=== PATIENT | female | born 1985 | race Caucasian/White ===

== ENCOUNTER → 2020-11-19 | Outpatient (CLI) | payer OTHER ==
[~2020-11-19] MED LIST: ANTIDEPRESSANT; NO HOME MEDICATIONS; VENTOLIN0.09 MG IH
== END ==
LOC: COL.RAD 08:15
DX: C50.919 Malignant neoplasm of unspecified site of unspecified female breast (principal)
CPT/HCPCS: A9585

== ENCOUNTER → 2020-11-25 | Outpatient (CLI) | payer OTHER | LOC: MC.RAD 09:30 | DX: Z12.31 Encounter for screening mammogram for malignant neoplasm of breast (principal); C50.111 Malignant neoplasm of central portion of right female breast; Z98.82 Breast implant status ==

== ENCOUNTER 2021-12-06 10:38 | Emergency (ER) | payer OTHER ==
[~2021-12-06] VITALS: Ht 157.5 cm; Wt 79.5 kg
[2021-12-06 10:41] VITALS: TEMP 98.1
[2021-12-06 12:24] LABS: BASO % 0.5 % (0.0-2.0); EOS # 0.1 K/mm3 (0.0-0.7); EOS % 1.2 % (0.0-4.0); GRAN # 2.8 K/mm3 (1.4-6.5); GRAN % 65.1 % (42.2-75.2); HEMATOCRIT 38.1 % (37.0-47.0); HEMOGLOBIN 12.2 g/dl (12.5-16.0); LYMPH # 1.1 K/mm3 (1.2-3.4); LYMPH % 25.7 % (20.0-51.0); MEAN CELL VOLUME 86 fl (80.0-100.0); MEAN CORPUSCULAR HEMOGLOBIN 27 pg (27-31); MEAN CORPUSCULAR HGB CONC 32 g/dl (33.0-37.0); MEAN PLATELET VOLUME 12.5 fl (7.4-10.4); MONO # 0.3 K/mm3 (0.1-0.6); MONO % 6.8 % (1.7-9.3); PLATELET COUNT 172 K/mm3 (130-400); RED BLOOD COUNT 4.45 M/mm3 (4.10-5.30); REDCELL DISTRIBUTION WIDTH-CV 13.6 % (11.5-14.5)
[2021-12-06 12:44] LABS: ALBUMIN 3.9 gm/dL (3.5-5.0); CALCIUM 9.3 mg/dL (8.4-10.2); CREATININE, serum 0.75 mg/dL (0.57-1.11); PHOSPHOROUS 3.1 mg/dL (2.3-4.7); POTASSIUM 3.6 mmol/L (3.5-4.5)
[2021-12-06 13:04] LABS: THYROID STIMULATING HORMONE 2.181 uIU/mL (0.350-4.940)
[2021-12-06] MEDS ORDERED: REGLAN 10MG10 MG/TAB PO (14:39)
[2021-12-06 14:52] VITALS: BP 112/70; PULSE 62
== END 2021-12-06 14:52 | disposition home or self-care (01) ==
LOC: COL.ER 10:38
PROVIDERS: Emergency Medicine
DX: R42 Dizziness and giddiness (principal); R51.9 Headache, unspecified; R20.2 Paresthesia of skin; Z85.3 Personal history of malignant neoplasm of breast; Z28.310 Unvaccinated for COVID-19
CPT/HCPCS: J2405

== ENCOUNTER → 2022-10-06 | Outpatient (CLI) | payer OTHER ==
[~2022-10-06] MED LIST changes: +REGLAN 10MG10 MG/TAB PO
== END ==
LOC: COL.RAD 08:15
DX: C50.111 Malignant neoplasm of central portion of right female breast (principal); Z90.11 Acquired absence of right breast and nipple; Z98.890 Other specified postprocedural states
CPT/HCPCS: Q9967

== ENCOUNTER 2022-11-03 09:42 | Day surgery (SDC) | payer OTHER ==
[~2022-11-03] VITALS: Ht 160 cm; Wt 71.3 kg
[2022-11-03] MEDS ORDERED: TOPAMAX25 M1 PO (10:31)
[2022-11-03] MEDS ORDERED: SYNTHROID0.088 MG/T PO (10:31)
[2022-11-03] MEDS ORDERED: VITAMIN B COMPL1 SGL PO (10:32)
[2022-11-03] MEDS ORDERED: IRON TABLETS325 MG PO (10:32)
[2022-11-03] MEDS ORDERED: BEEF LIVER PO (10:33)
[2022-11-03] MEDS ORDERED: MULTI VITAMINS1 TAB PO (10:33)
[2022-11-03] MEDS ORDERED: MAGNESIUM200 MG PO (10:33)
[2022-11-03 10:36] VITALS: BP 112/61; PULSE 65; TEMP 97.3
[2022-11-03 12:45] VITALS: BP 87/60; PULSE 68; TEMP 97.3
[2022-11-03 13:00] VITALS: BP 92/55; PULSE 64
[2022-11-03 13:15] VITALS: BP 110/53; PULSE 64
--- NOTE | 2022-11-03 13:30 | NUR ---
1245 RETURNS TO ROOM 8 PER CART. AWAKE, ALERT. RESP UNLABORED. AMBULATES TO RECLINER WITH STANDBY ASSIST. DENIES NAUSEA, ABD PAIN OR DYSPHAGIA. VITAL SIGNS OBTAINED. CALL LIGHT AT SIDE. HERE 1255 DR. COLON HERE TO VISIT WITH PATIENT 1310 TOLERATES PO SODA AND APPLESAUCE WITHOUT NAUSEA. SWALLOWS WITHOUT DIFFICULTY, DISCHARGE INSTRUCTIONS REVIEWED. PATIENT VERBALIZES UNDERSTANDING. COPY PROVIDED IN DISCHARGE FOLDER 1320 DRESSES SELF.
== END 2022-11-03 13:30 | disposition home or self-care (01) ==
LOC: SDCO 09:42
DX: K29.50 Unspecified chronic gastritis without bleeding (principal); K31.89 Other diseases of stomach and duodenum; R19.4 Change in bowel habit; D50.9 Iron deficiency anemia, unspecified; R63.4 Abnormal weight loss; R19.7 Diarrhea, unspecified; R63.0 Anorexia; R68.81 Early satiety; Z28.310 Unvaccinated for COVID-19; Z87.891 Personal history of nicotine dependence
CPT/HCPCS: J2704; J7120